=== PATIENT | male | born 1975 | race Two or more races ===

== ENCOUNTER 2019-10-06 05:00 | Day surgery (SDC) | payer OTHER ==
[~2019-10-06 05:00] MED LIST: PRILOSEC OTC20 MG PO; TENORMIN50 M1 PO; VASOTEC2.5 MG; ZYRTEC10 M3 PO
[2019-10-06] MEDS ORDERED: COLACE100 MG PO (08:39)
[2019-10-06] MEDS ORDERED: PERCOCET 5-3251 EACH PO (08:39)
== END 2019-10-06 14:10 | disposition home or self-care (01) ==
LOC: CIR.AMB 05:00
DX: K60.3 Anal fistula (principal)